=== PATIENT | female | born 1955 | race Caucasian/White ===

== ENCOUNTER 2017-06-06 10:21 | Emergency (ER) | payer MEDICARE, MEDICAID ==
[~2017-06-06] VITALS: Ht 162.6 cm; Wt 60.5 kg
[~2017-06-06 10:21] MED LIST: ASPI325T32 PO; FLUO10CA20 PO; HYDR-4003 PO; IBUP800T28 PO; INSLIS SUBQ; INSU100V7 SUBQ; METO25TA6 PO; OMEP40CA36 PO; OXYB10TA PO; PHEN-777 PO; RNT300T PO; ZLP5T PO
[2017-06-06 10:27] VITALS: BP 141/53; PULSE 81; RESP 18; O2SAT 93
--- NOTE | 2017-06-06 11:11 | ED.REPORT ---
HPI-Abd Pain F 40 and Over Date of Service Jun 06, 2017 ED Provider: Misael Alfaro MD A 61 year old female with a history of interstitial cystitis, CO, diabetes, anxiety, UTI and hypertension presents to the ED complaining of abdominal pain. The pt has been experiencing increasing abdominal pain related to her interstitial cystitis for the last three days. This is accompanied by dysuria, low back pain, stabbing pelvic pain, nausea, hematuria and new onset incontinence, though the pt denies vomiting. The pt is meant to be "having treatments" to treat her cystitis but has been refusing recently. Her last treatment was seven months ago. She is taking hydrocodone for pain but is not currently on antibiotics. The pt does not have a follow up appointment scheduled with urology until 09/2017. Nursing Notes Stated Complaint: BLADDER PAIN Chief Complaint: Female Abdominal Pain Nursing Notes Reviewed: Yes Allergies: Coded Allergies: Irbmvxf-Fka-Cpe Reductase Inhibitor (Verified Allergy, Intermediate, sore muscles, 02/19/15) Sulfa (Sulfonamide Antibiotics) (Verified Allergy, Unknown, nausea- vomiting, 08/21/15) Tetracyclines (Verified Allergy, Unknown, nausea-vomiting, 08/21/15) Scheduled Aspirin (Aspirin) 325 Mg Tablet.dr 325 MG PO DAILY Fluoxetine (Fluoxetine) 10 Mg Capsule 10 MG PO DAILY Insulin Glargine (Lantus U100 Insulin Vial) 100 Unit/Ml Vial 27 UNIT SUBQ QPM- INSULIN Insulin Human Lispro (HumaLOG U100 Insulin Vial) 100 Unit/Ml Unit 10 SUBQ TID- INSULIN Check blood sugars before meals and at bedtime. Use correction factor only before meals. Blood Sugar Lispro Correction: <151, 0 units; 151-175, 1 unit; 176-200, 2 units; 201-225, 3 units; 226-250, 4 units; 251-275, 5 units; 276-300 , 6 units; 301-325, 7 units; 326-350, 8 units; 351-375, 9 units; 376-400, 10 units; >400, 12 units. Metoprolol Tartrate (Metoprolol Tartrate) 25 Mg Tablet 25 MG PO BID Omeprazole (Omeprazole) 40 Mg Capsule.dr 40 MG PO BID Oxybutynin Chloride ER (Oxybutynin Chloride ER) 10 Mg Tab.er.24 10 MG PO DAILY Ranitidine (Zantac) 300 Mg Tablet 300 MG PO DAILY Scheduled PRN Hydrocodone-Acetaminophen 5-325 mg (Hydrocodone-Acetaminophen 5-325 mg) 1 Each Tablet 1 EACH PO Q6 PRN PRN For Pain Ibuprofen (Ibuprofen) 800 Mg Tablet 800 MG PO TID PRN PRN For Pain Phenazopyridine (Phenazopyridine) 200 Mg Tablet 200 MG PO TID PRN PRN For Pain Zolpidem (Ambien) 5 Mg Tab 10 MG PO HS PRN PRN For Insomnia General Time Seen by MD: 10:37 Chief Complaint Abdominal pain Hx Obtained From: Patient Arrived By: Walk-in Sudden in Onset?: No Symptom Duration: Since onset Recent Healthcare: No recent hospitalization Similar Sx Previous: No Past Medical History Past Medical History interstitial cystitis CO x2 pneumonia diverticulitis kidney stones UTI arthritis diabetes anxiety Past Surgical History neck back kidney cardiac stent adnoids Reports: Appendectomy, Hysterectomy Smoking History Former Smoker Social History Other Social History: Good social support Ambulatory Status Independent Review of Systems Respiratory: Denies: Non-productive cough, Shortness of breath Cardiovascular: Denies: Chest pain GI: Reports: Abdominal pain, Nausea, Denies: Vomiting Female: Reports: Dysuria, Hematuria, Incontinence (urinary), Pelvic pain Musculoskeletal: Reports: Back pain, Denies: Neck pain Complete sys rev & neg: except as marked. Skin: Denies Rash Physical Exam Vital Signs Vital Signs (First) Date Time Temp Pulse Resp B/P Pulse Ox O2 Delivery O2 Flow Rate FiO2 06/06/17 10:27 37.2 81 18 141/53 93 Room Air Initial VS: Reviewed General/Constitutional: Awake, Alert Respiratory / Chest: Atraumatic, Breath sounds NL, Breath sounds = bilat, No respiratory distress Cardiovascular: Heart rate NL, Regular rhythm, Heart sounds NL Abdomen: Atraumatic, Soft, No guarding, No rebound mild suprapubic tenderness Back: Atraumatic, Full range of motion, No CVA tenderness Head / Eyes: Atraumatic, Normocephalic, PERRL, EOMI ENT: Atraumatic, Airway patent, Mucous membranes moist Skin: Atraumatic, Color NL, No rash, Warm, Dry Neurologic: Oriented X3, Speech NL, No motor deficits, No sensory deficits Neck: Atraumatic, Supple, Full range of motion Upper Extremity / MS: Atraumatic, Full range of motion Lower Extremity / Pelvis / MS: Atraumatic, Full range of motion Psychiatric: Affect NL, Mood NL Interpretation & Diagnostics Interpretation & Diagnostics: CT KUB: IMPRESSION: 1. No renal stone. 2. Mild left-sided hydroureteronephrosis to the level of left UVJ. 3. Mild urinary bladder wall thickening which could be due to nondistention verses inflammatory/infectious or neoplastic processes. Please correlate with clinical and urinalysis data. 4. Atherosclerosis. 5. Colonic diverticulosis without evidence of diverticulitis. Dictated by: Gianna Guerra MD, PhD on 06/06/2017 at 13:05 Approved by: Gianna Guerra MD, PhD on 06/06/2017 at 13:14 Lab Results Interpretation Result Diagram: 06/06/17 1110 06/06/17 1110 Test 06/06/17 11:03 06/06/17 11:10 Urine Color [place] (YELLOW) Urine Appearance Hazy (CLEAR,HAZY) Urine pH (5.0-8.0) Urine Specific [place] (1.003-1.035) Urine Protein mg/dL (NEG,TRACE) Urine Glucose (UA) mg/dL (NEGATIVE) Urine Ketones mg/dL (NEGATIVE) Urine Occult Blood (NEGATIVE) Urine Nitrite (NEGATIVE) Urine Bilirubin (NEGATIVE) Urine Urobilinogen mg/dL (NORMAL) Urine Leukocyte Esterase (NEGATIVE) Urine RBC >50/hpf (0-2) Urine WBC 0-5/hpf (0-5) Urine Epithelial Cells Occasional/hpf (NONE-MOD) Urine Crystals None seen (NONE SEEN) Urine Bacteria None/hpf (NONE-FEW) Urine Hyaline Casts None/lpf (NONE) Urine Granular Casts None seen (NONE SEEN) Urine Waxy Casts None seen (NONE SEEN) Urine Red Blood Cell Casts None seen (NONE SEEN) Urine White Blood Cell Casts None seen (NONE SEEN) Urine Mucus None seen (None Seen) Urine Trichomonas None seen (NONE SEEN) Urine Yeast None (NONE SEEN) Urinalysis Comment Color interference Urine Culture Reflexed Not indicated Hold Urine Received (Received) White Blood Count 7.8th/mm3 (3.8-10.1) Red Blood Count 4.27mil/mm3 (3.90-5.20) Hemoglobin 13.0g/dL (12.0-15.6) Hematocrit 38.4% (35.0-46.0) Mean Corpuscular Volume 89.9fL (81-100) Mean Corpuscular Hemoglobin 30.4pg (27.0-35.0) Mean Corpuscular Hemoglobin Concent 33.9% (32.0-37.0) Red Cell Distribution Width 13.2% (12.3-15.4) Platelet Count 234bil/L (150-400) Neutrophils (%) (Auto) 61.0% (40-74) Lymphocytes (%) (Auto) 25.4% (14-46) Monocytes (%) (Auto) 10.6% (4-12) Eosinophils (%) (Auto) 2.4% (0-5) Basophils (%) (Auto) 0.3% (0-3) Sodium Level 138mEq/L (134-144) Potassium Level 4.0mEq/L (3.5-5.2) Chloride Level 99mEq/L (97-108) Carbon Dioxide Level 25mmol/L (18-29) Blood Urea Nitrogen 14mg/dL (6-24) Creatinine 0.58mg/dL (0.57-1.00) Estimat Glomerular Filtration Rate 152mL/min (>59) Glucose Level 139mg/dL (60-99) Calcium Level 9.5mg/dL (8.5-10.1) Magnesium Level 2.0mg/dL (1.6-2.6) Total Bilirubin 0.2mg/dL (0.0-1.2) Aspartate Amino Transf (AST/SGOT) 20U/L (0-50) Alanine Aminotransferase (ALT/SGPT) 16U/L (0-32) Alkaline Phosphatase 75U/L (25-165) Total Protein 7.4g/dL (6.4-8.4) Albumin 4.1g/dL (3.4-5.0) Lipase 17U/L (13-60) Re-Eval/Medical Decision Med Decision/Clinical Course 61-year-old female history of interstitial cystitis reporting with worsening pain with urination over the last 3 days. No sign symptoms of infection. Urine negative for infection. Labs are unremarkable. She did have some blood in her urine. Discussed with the urologist on-call who recommended ruling out other causes of hematuria discharged home without antibiotics with follow-up with her urologist if workup negative. CT KUB no stones. Discharged home with follow-up primary doctor and urology. Return precautions given. Source of Hx: Old records Re-Evaluation/Progress #1: Time of Eval: 13:22 Patient Status: Condition improved Re-Evaluation/Progress Note: Pt rechecked, who is comfortable. Additional history is obtained and need for CT scan is discussed. Re-Evaluation/Progress #2: Time of Eval: 15:04 Patient Status: Condition improved Re-Evaluation/Progress Note: Pt rechecked, who is comfortable. The diagnosis and plan for discharge are discussed. The pt understands and agrees with the plan. All questions are addressed at this time. Consultation : Referral / Consult Name: Hellen Perez MD Consulted With: Urology Call Returned at: 13:33 [employer] Production Manager: Agrees with eval, Agrees with plan Note: Consulted with Dr. Perez, urology, regarding pt's case. Dr. Perez recommends CT KUB and discharge if this is normal. Counseled Regarding: Diagnosis, Lab results, Need for follow-up, When/why to return to ED Discharge & Departure Primary Impression: Interstitial cystitis Disposition: Home Discharge Condition All VS Reviewed: Yes Condition: Stable Patient Instructions: Interstitial Cystitis (ED) Additional Instructions: Thank you for entrusting us with your care. Your evaluation was reassuring. We spoke with Urology who recommends follow up with Dr Wall. Call your primary care physician to arrange a follow up appointment in the next several days. Also arrange a follow up appointment with Dr. Wall. Return to the emergency department if you develop any new or worsening symptoms such as worsening pain, nausea, vomiting or fever. Referrals: Cely Pacheco MD (PCP) Scribe Attestation Portions of this note were transcribed by Margaux Cordova. I, Dr. Alfaro personally performed the history, physical exam and medical decision-making; I reviewed and confirmed the accuracy of the information in the transcribed note. copies to: Cely Pacheco MD, Ben M MD Jun 06, 2017 11:11 MARGAUX CORDOVA Jun 06, 2017 11:19
[2017-06-06] MEDS ORDERED: 0.9% Sodium Chloride 1,000 ML IV ONE (11:17)
[2017-06-06] MEDS ORDERED: Ondansetron 2 mg/mL 2 mL Inj IVPUSH PRN (11:20)
[2017-06-06 11:28] LABS: BASOPHILS % (AUTO) 0.3 % (0-3); EOSINOPHILS % (AUTO) 2.4 % (0-5); MONOCYTES % (AUTO) 10.6 % (4-12); Mean Corpuscular Hemoglobin 30.4 pg (27.0-35.0); Mean Corpuscular Volume 89.9 fL (81-100); Platelet Count 234 bil/L (150-400)
[2017-06-06 12:24] VITALS: BP 110/66; PULSE 78; RESP 20; O2SAT 94
[2017-06-06 13:02] VITALS: BP 112/72; PULSE 70; RESP 20; O2SAT 100
[2017-06-06 13:08] LABS: APPEARANCE,URINE HAZY (CLEAR,HAZY); COLOR,URINE ORANGE (YELLOW)
--- NOTE | 2017-06-06 14:16 | DRSVH ---
PROCEDURE: CT KUB ([id number]) INDICATIONS: hematuria TECHNIQUE: Noncontrast 5 mm thick sections acquired from the diaphragms to the symphysis. 5 mm thick coronal an d sagittal reformats were then performed. For radiation dose reduction, the following was used: aut omated exposure control, adjustment of mA and/or kV according to patient size. COMPARISON: Outside Film, CT, CT ABD PELVIS W&WO CON IVP, 05/05/2016, 10:56. FINDINGS: Image quality: Excellent. Lung bases: Lung bases are clear. Heart size is normal. Urinary system: Both kidneys are normal in size no renal stones. Right intra-renal calcifications ar e noted which are stable compared to prior examination obtained 05/05/16 and likely represent atherosc lerotic calcifications. Mild left-sided hydroureteronephrosis is noted to the level of the left UVJ. Mild urinary bladder wall thickening is noted as slightly changed. Prior CT scan. No perinephric fat stranding. Both ureters appear non-dilated throughout their expected courses. Bladder wall thicknes s is normal; no calcified bladder stones. Other solid organs: Liver and spleen are normal in size. Gallbladder is contracted, but within norm al limits. Pancreas is normal in contours. No adrenal nodules. Peritoneum and bowel: Unenhanced bowel loops demonstrate normal wall thickness and caliber. Scattere d colonic diverticuli without evidence of diverticulosis. No free fluid or air. Nodes and vessels: No retroperitoneal or mesenteric adenopathy by size criteria. Aorta and inferior vena cava are normal in caliber. Scattered atherosclerotic calcifications noted in the abdominal and pelvic vasculature. Abdominal wall: No ventral hernias. Pelvis: No free pelvic fluid. No inguinal hernias or adenopathy. Uterus is absent. Bones: No suspicious bony lesions. No vertebral body compression fractures. Spine degenerative disc disease and facet arthropathy. IMPRESSION: 1. No renal stone. 2. Mild left-sided hydroureteronephrosis to the level of left UVJ. 3. Mild urinary bladder wall thickening which could be due to nondistention verses inflammatory/infec tious or neoplastic processes. Please correlate with clinical and urinalysis data. 4. Atherosclerosis. 5. Colonic diverticulosis without evidence of diverticulitis. Dictated by: Gianna Guerra MD, PhD on 06/06/2017 at 13:05 Approved by: Gianna Guerra MD, PhD on 06/06/2017 at 13:14
[2017-06-06 14:31] VITALS: BP 126/64; PULSE 79; RESP 20; O2SAT 95
== END 2017-06-06 15:10 | disposition home or self-care (01) ==
LOC: SED 10:21
DX: N30.11 Interstitial cystitis (chronic) with hematuria (principal); M54.5 Low back pain; I25.2 Old myocardial infarction; E11.9 Type 2 diabetes mellitus without complications; F41.9 Anxiety disorder, unspecified; Z79.4 Long term (current) use of insulin; Z79.82 Long term (current) use of aspirin; Z95.5 Presence of coronary angioplasty implant and graft; Z90.710 Acquired absence of both cervix and uterus; Z87.891 Personal history of nicotine dependence; Z87.01 Personal history of pneumonia (recurrent); Z87.442 Personal history of urinary calculi; Z87.440 Personal history of urinary (tract) infections; Z88.1 Allergy status to other antibiotic agents; Z88.2 Allergy status to sulfonamides; Z88.8 Allergy status to other drugs, medicaments and biological substances
CPT/HCPCS: 36415; 74176; 80053; 81000; 83690; 83735; 85025; 96361; 96374; 96375; 99285; J1885; J2405; J7030